=== PATIENT | female | born 1960 | race Caucasian/White ===

== ENCOUNTER 2024-02-06 15:20 | Outpatient (CLI) | payer OTHER, SELFPAY ==
--- NOTE | ~2024-02-06 | CT_ITS ---
CT Scan of the Chest without Contrast: Clinical Indication: Lung cancer screening, nicotine dependence Technique: Contiguous sections were acquired throughout the chest without intravenous contrast. Dose reduction technique was used on this scan by utilizing automated exposure control and iterative recon struction technique. The dose-length product (DLP) was 300.10 mGy-cm. Findings: There is no evidence of any significant mediastinal, hilar or axillary lymphadenopathy. The mediastin al soft tissues appear normal. There is no evidence of pleural or pericardial effusion. There is advanced emphysema. There is minimal bibasilar scarring/atelectasis. Images through the upper abdomen reveal small calcified gallstone. Impression: Lung RADS 1: Negative. 12 month follow-up screening CT advised. Advanced emphysema. Reviewed, dictated and finalized at location . [facility] Impression: Lung RADS 1: Negative. 12 month follow-up screening CT advised. Advanced emphysema.
== END 2024-02-06 15:21 | disposition home or self-care (01) ==
LOC: MICIMG 15:21
PROVIDERS: PCP Family Medicine; Visit Provider Internal Medicine Pulmonary Disease
DX: Z12.2 Encounter for screening for malignant neoplasm of respiratory organs (principal); F17.211 Nicotine dependence, cigarettes, in remission; J43.9 Emphysema, unspecified
CPT/HCPCS: 71271